=== PATIENT | female | born 1985 | race Caucasian/White ===

== ENCOUNTER 2017-05-16 07:35 | Day surgery (SDC) | payer OTHER ==
[~2017-05-16] VITALS: Ht 170.2 cm; Wt 80.0 kg
[~2017-05-16 07:35] MED LIST: 0.9% Sodium Chloride 1,000 ML IV SCH; BACL20TA PO; DICY20TA10 PO; DULO60CA61 PO; FLUO20CA25 PO; HYDR-4003 PO; INSU100I; INSU100I13 SUBQ; INSU200I SQ; LORA10CA PO; METF500T4 PO; Sodium Chloride LOK Flush 10 mL Syringe IV PRN; TRAM50TA2 PO; fentaNYL-PF 50 mCg/mL 2 mL Inj IVPUSH PRN
[2017-05-16] MEDS ORDERED: LABE100T4 PO (08:16)
[2017-05-16 08:26] VITALS: BP 129/83; PULSE 88; RESP 16; O2SAT 100
--- NOTE | 2017-05-16 09:23 | PCM.ENDEGD ---
EGD Date of Service: May 16, 2017 Physician Kj Last MD Pre Procedure Diagnosis: Abdominal pain and diarrhea Post Procedure Dx & Findings: Irregular Z line Procedure Esophagogastroduodenoscopy PROCEDURE IN DETAIL: After proper sedation, Olympus video endoscope was inserted into patient's mouth and esophagus was successfully intubated. Scope introduced esophagus. Esophagus showed normal shiny whitish mucosa consistent with squamous cell component. Z line was at 40 cm from the incisors. The Z line was irritated with some spot which appears as though patient had a healing erosion. Biopsies obtained. Scope further advanced to the stomach. Stomach showed normal shiny mucosa with normal appearing rugae folds without any ulcer mass erosion. Cardia fundus body antrum pylorus were all visualized. Retroflexion was done. Stomach was easily inflated and deflatable using air. Scope further advanced to the distal duodenum. Duodenum revealed normal villous structures with normal appearing folds without any mass ulcer erosion. 5 biopsies done for celiac. Impression Irregular Z line Recommendation Await biopsies Presedation Assessment Risks and Benefits Informed consent was obtained from the patient after all risks and benefits including but not limited to drug reaction, infection, pain, bleeding, perforation, as well as alternatives were discussed. Patient monitoring Continuous pulse oximetry, cardiac monitoring, blood pressure monitoring, IV access, and oxygen at 2L per nasal cannula. Periprocedural Fentanyl: Fentanyl 125mcg Incrementally Midazolam: Midazolam 5mg Incrementally Complications There were no periprocedural complications identified. Post Procedure Plan Post Procedure Recommendations 1. Restrict activities today. 2. Resume normal activities in the morning. 3. Resume medications. 4. GERD behavioral modification: - Avoid fatty, acidic, spicy, large meals - Do not lie down after meals - Do not eat or drink anything for at least 2 1/2 hours before going to bed at night - Discontinue tobacco and alcohol - Decrease or avoid caffeine - Avoid chocolate and mints - Decrease weight - Avoid aspirin and non steroidal anti-inflammatory agents (NSAID) such as Aleve, Advil, Mobic, Naproxen, Ibuprofen, etc 5. Add proton pump inhibitor. Take 30 minutes before 1st meal of the day. 6. Patient informed of normal post procedure side effects as bloating, drowsiness, blood streaking in the stool 7. If gastric biopsy reveal H.pylori, continue with appropriate treatment 8. If small bowel biopsy reveals celiac, continue with appropriate treatment 9. Please don't hesitate to call me with any questions Kj Last MD May 16, 2017 09:23
--- NOTE | 2017-05-16 09:25 | PCM.ENDCOL ---
Colonoscopy Physician Kj Last MD Pre Procedure Diagnosis: Diarrhea Post Procedure Dx & Findings: Polyp hemorrhoids Procedure Colonoscopy PROCEDURE IN DETAIL: Prep adequate Withdrawal time 20 minutes After unremarkable rectal examination the Olympus video colonoscope was inserted patient's anal canal and was advanced to cecum. Landmarks were identified including the ileocecal valve and appendiceal orifice. Scope advanced to the terminal ileum. Advancement centimeters. Terminal ileum showed normal villous structures without any ulcer mass or erosions. Scope was withdrawn systematically. Visualized colonic mucosa showed healthy shiny mucosa with normal healthy-appearing vasculature. Random biopsies were taken from the cecum to the rectum. In the ascending colon, there were 2 polyps. One was 3 mm in size the other was 6 mm in size. They are both removed completely using cold snare. In the transverse colon, was a 3 mm polyp which was removed completely using cold snare. In the sigmoid colon there were 2 polyps. There were 1 mm in size and they were both removed completely using cold forceps. In the rectum retroflexion was done which showed hemorrhoids. Anal canal was inspected carefully on the way out and hemorrhoids noted. Impression Polyps 5 status post complete removal Normal TI Hemorrhoids Recommendation Repeat colonoscopy 3 years Presedation Assessment Risks and Benefits Informed consent was obtained from the patient after all risks and benefits including but not limited to drug reaction, infection, pain, bleeding, perforation, as well as alternatives were discussed. Patient monitoring Continuous pulse oximetry, cardiac monitoring, blood pressure monitoring, IV access, and oxygen at 2L per nasal cannula. Complications There were no periprocedural complications identified. Post Procedure Plan Post Procedure Recommendations 1. Restrict activities today. 2. Resume normal activities in the morning. 3. Resume medications. 4. Patient informed of normal post procedure side effects as bloating, drowsiness, blood streaking in the stool. 5. average risk CRCS. If colon polyps come back as: -Hyperplastic- can repeat colonoscopy in 10 years -Tubular adenoma- repeat colonoscopy in 5 years -Tubulovillous/villous adenoma- repeat colonoscopy in 3 years -If any dysplasia- return to clinic as soon as possible 6. Please don't hesitate to call me with any questions. Kj Last MD May 16, 2017 09:25
[2017-05-16 09:30] VITALS: BP 128/69; PULSE 63; O2SAT 100
[2017-05-16 09:47] VITALS: BP 125/80; PULSE 62; RESP 16; O2SAT 70
[2017-05-16 09:50] VITALS: BP 128/88; PULSE 66; RESP 16; O2SAT 100
--- NOTE | 2017-05-19 09:33 | PATH ---
SURGICAL PATHOLOGY Attending Physician:Kj Last M.D. CASE STATUS: Signed Out PATIENT NAME: MAIA BENSON PID: [id number] : 1985 DATE COLLECTED:05/16/2017 16:41 SPECIMEN: 1: Esophagus, Biopsy 2: Duodenum, Biopsy 3: Colon, Polyp 4: Colon, Biopsy 5: Colon, Polyp 6: Colon, Polyp CLINICAL HISTORY: ABD PAIN, DIARRHEA, ESOPHAGITIS COLON POLYPS 1. DISTAL ESOPH BX 2. DUODENAL BXS 3. ASCENDING COLON POLYP X2 4. RANDOM COLON BXS 5. TRANSVERSE COLON POLYP 6. SIGMOID POLYP FINAL DIAGNOSIS: 1.DISTAL ESOPHAGUS BIOPSY: SQUAMOCOLUMNAR MUCOSA WITH MILD REFLUX-RELATED CHANGES. Negative for intestinal/Arteaga' s metaplasia. Negative for dysplasia and malignancy. 2.DUODENAL BIOPSIES: DUODENAL MUCOSA WITH NO DIAGNOSTIC ALTERATIONS. Negative for inflammation, sprue, dysplasia, and malignancy. 3.ASCENDING COLON POLYPS: SESSILE SERRATED ADENOMAS, 2. 4.RANDOM COLON BIOPSIES: COLONIC MUCOSA WITH NO DIAGNOSTIC ALTERATIONS. Negative for inflammation, dysplasia and malignancy. 5.TRANSVERSE COLON POLYP: SESSILE SERRATED ADENOMA. 6.SIGMOID POLYP: TUBULAR ADENOMA, 1 FRAGMENT. HYPERPLASTIC POLYP, 1 FRAGMENT. ICD10 K21.9 D12.2 D12.3 D12.5 K63.5 GROSS DESCRIPTION: Received six formalin-filled containers, each labeled with the patient's name. 1. In a container labeled "distal esoph", specimen consists of two portions of tissue which aggregate to 0.2 x 0.2 x 0.2 cm. The specimen is entirely submitted in cassette 1A. 2.. The specimen is labeled "duodenal" and consists of three portions of tissue which aggregate to 0.3 x 0.3 x 0.2 cm. The specimen is entirely submitted in cassette 2A. 3. In a container labeled "ascending colon polyps", specimen consists of four portions of tissue which aggregate to 0.5 x 0.5 x 0.3 cm. The specimen is entirely submitted in cassette 3A. 4. In a container labeled "random colon", specimen consists of multiple portions of tissue which aggregate to 0.8 x 0.3 x 0.2 cm. The specimen is filtered and entirely submitted in cassette 4A. 5. In a container labeled "transverse polyp", specimen consists of two portions of tissue and possible debris which aggregate to 0.6 x 0.4 x 0.2 cm. The specimen is entirely submitted in cassette 5A. 6. In a container labeled "sigmoid polyp", specimen consists of two portions of tissue which aggregate to 0.4 x 0.3 x 0.3 cm. The specimen is entirely submitted in cassette 6A. ([facility] [place]:[id number]) MICRO DESCRIPTION: See diagnosis. ICD-9 CODES: CPT CODES: 1: 87771 2: 77151 3: 03266 4: 66305 5: 93272 6: 27093 Electronically Signed Out Anne Webster MD [facility] [address], [place] [address] Technical component performed at [facility], [facility] [address], [place], [address]
== END 2017-05-16 23:59 | disposition home or self-care (01) ==
LOC: END 07:35
PROVIDERS: ATTEND Internal Medicine
DX: D12.2 Benign neoplasm of ascending colon (principal); D12.3 Benign neoplasm of transverse colon; D12.5 Benign neoplasm of sigmoid colon; K63.5 Polyp of colon; K64.9 Unspecified hemorrhoids; K21.9 Gastro-esophageal reflux disease without esophagitis; R10.10 Upper abdominal pain, unspecified; E10.21 Type 1 diabetes mellitus with diabetic nephropathy; F32.9 Major depressive disorder, single episode, unspecified; E28.2 Polycystic ovarian syndrome; Z79.4 Long term (current) use of insulin; Z79.84 Long term (current) use of oral hypoglycemic drugs
CPT/HCPCS: 43239; 45380; 45385; 99153; G0500; J2250; J3010; J7030